=== PATIENT | female | born 1980 | race Caucasian/White ===

== ENCOUNTER 2020-11-02 16:23 | Emergency (ER) | payer OTHER ==
[2020-11-02 17:24] LABS: BASO % 0.3 % (0.0-1.0); EOS # 0.1 10*3/uL (0.0-0.4); EOS % 0.5 % (1.0-4.0); HEMATOCRIT 38.8 % (37.0-47.0); LYMPH # 2.3 10*3/uL (1.3-4.4); LYMPH % 19.2 % (27.0-41.0); MEAN CELL VOLUME 83.6 fl (81.0-99.0); MEAN CORPUSCULAR HGB 25.6 pg (27.0-31.0); MEAN CORPUSCULAR HGB CONC 30.7 g/dl (33.0-37.0); MEAN PLATELET VOLUME 9.2 fl (9.6-12.3); MONO # 0.6 10*3/uL (0.1-1.0); MONO % 4.8 % (3.0-9.0); NEUT % 74.9 % (47.0-73.0); PLATELET COUNT AUTOMATED 378 10*3/uL (130-400); RED BLOOD COUNT 4.64 10*6/uL (4.10-5.10); RED CELL DISTRI WIDTH 14.5 % (0-14.5)
[2020-11-02 17:41] LABS: ALBUMIN 3.8 gm/dl (3.1-4.5); ALKALINE PHOSPHATASE 119 U/L (45-117); BUN 11 mg/dl (7-24); CHLORIDE 104 mmol/L (98-107); CREATININE 0.94 mg/dL (0.55-1.02); POTASSIUM 4.2 mmol/L (3.5-5.1); SGOT/AST 16 IU/L (3-35); SGPT/ALT 26 U/L (12-78); SODIUM 138 mmol/L (136-145)
[2020-11-02] MEDS ORDERED: CEPHALEXIN500 M1 PO (18:17)
[2020-11-02] MEDS ORDERED: SEPTDS PO (18:17)
== END 2020-11-02 18:39 | disposition home or self-care (01) ==
LOC: ED 16:23
PROVIDERS: Physician Assistant
DX: L03.011 Cellulitis of right finger (principal)

== ENCOUNTER → 2020-12-25 | Outpatient (CLI) | payer OTHER ==
[~2020-12-25] MED LIST: CEPHALEXIN500 M1 PO; SEPTDS PO
== END | disposition home or self-care (01) ==
LOC: COVID19 17:53
PROVIDERS: ATTEND Student in an Organized Health Care Education/Training Program
DX: Z11.52 Encounter for screening for COVID-19 (principal)

== ENCOUNTER 2021-12-18 12:30 | Emergency (ER) | payer OTHER ==
[2021-12-18] MEDS ORDERED: Bactroban Oint22 GM T (13:27)
== END 2021-12-18 13:45 | disposition home or self-care (01) ==
LOC: ED 12:30
DX: L01.00 Impetigo, unspecified (principal)

== ENCOUNTER 2022-03-19 08:05 | Emergency (ER) | payer OTHER ==
[~2022-03-19] VITALS: Ht 165.1 cm; Wt 86.2 kg
[~2022-03-19 08:05] MED LIST changes: +Bactroban Oint22 GM T
[2022-03-19] MEDS ORDERED: CYCLOBENZAPRINE10 MG PO (08:30)
[2022-03-19] MEDS ORDERED: RELAFEN500 M1 PO (08:30)
== END 2022-03-19 09:09 | disposition home or self-care (01) ==
LOC: ED 08:05
DX: S46.912A Strain of unspecified muscle, fascia and tendon at shoulder and upper arm level, left arm, initial encounter (principal); X50.9XXA Other and unspecified overexertion or strenuous movements or postures, initial encounter; Y93.89 Activity, other specified; Y92.89 Other specified places as the place of occurrence of the external cause; Y99.8 Other external cause status

== ENCOUNTER 2024-03-02 14:54 | Emergency (ER) | payer OTHER ==
[~2024-03-02] VITALS: Ht 165.1 cm; Wt 102.5 kg
[~2024-03-02 14:54] MED LIST changes: +CYCLOBENZAPRINE10 MG PO; +RELAFEN500 M1 PO
[2024-03-02 15:35] LABS: BASO % 0.4 % (0.0-1.0); EOS # 0.1 10*3/uL (0.0-0.4); EOS % 1.7 % (1.0-4.0); HEMATOCRIT 31.7 % (37.0-47.0); MEAN CELL VOLUME 76.9 fl (81.0-99.0); MEAN CORPUSCULAR HGB 22.3 pg (27.0-31.0); MEAN PLATELET VOLUME 9.2 fl (9.6-12.3); MONO # 0.3 10*3/uL (0.1-1.0); MONO % 4.3 % (3.0-9.0); NEUT # 5.2 10*3/uL (2.3-7.9); NEUT % 68.2 % (47.0-73.0); PLATELET COUNT AUTOMATED 284 10*3/uL (130-400); RED BLOOD COUNT 4.12 10*6/uL (4.10-5.10); RED CELL DISTRI WIDTH 15.6 % (0-14.5); WHITE BLOOD COUNT 7.6 10*3/uL (4.8-10.8)
[2024-03-02 15:51] LABS: BUN 11 mg/dl (9-23); CHLORIDE 105 mmol/L (98-107)
[2024-03-02] MEDS ORDERED: CEPHALEXIN500 M1 PO (16:38)
[2024-03-02] MEDS ORDERED: PREDNISONE50 MG PO (16:38)
== END 2024-03-02 16:50 | disposition home or self-care (01) ==
LOC: ED 14:54
PROVIDERS: Physician Assistant Medical
DX: L03.116 Cellulitis of left lower limb (principal); L03.115 Cellulitis of right lower limb; L25.9 Unspecified contact dermatitis, unspecified cause

== ENCOUNTER 2024-07-31 17:43 | Emergency (ER) | payer OTHER ==
[~2024-07-31] VITALS: Ht 165.1 cm; Wt 106.6 kg
[~2024-07-31 17:43] MED LIST changes: +PREDNISONE50 MG PO
[2024-07-31] MEDS ORDERED: Tdap Vaccine 0.5 ML SYR (Adult Vaccine) IM ONE (18:15)
== END 2024-07-31 21:03 | disposition left against medical advice (07) ==
LOC: ED 17:43
DX: S09.8XXA Other specified injuries of head, initial encounter (principal); R51.9 Headache, unspecified; R42 Dizziness and giddiness; Z53.29 Procedure and treatment not carried out because of patient's decision for other reasons; W20.8XXA Other cause of strike by thrown, projected or falling object, initial encounter; Y93.89 Activity, other specified; Y92.89 Other specified places as the place of occurrence of the external cause; Y99.8 Other external cause status

== ENCOUNTER 2025-01-30 19:18 | Emergency (ER) | payer OTHER ==
[~2025-01-30] VITALS: Ht 165.1 cm; Wt 86.2 kg
[2025-01-30] MEDS ORDERED: ZITHROMAX250 MG PO (20:43)
[2025-01-30] MEDS ORDERED: MEDROL DOSEPAK4 MG PO (20:44)
[2025-01-30] MEDS ORDERED: AZITHROMYCIN 250 MG TAB PO ONE (20:45)
== END 2025-01-30 21:16 | disposition home or self-care (01) ==
LOC: ED 19:18
DX: J20.9 Acute bronchitis, unspecified (principal); F17.200 Nicotine dependence, unspecified, uncomplicated